=== PATIENT | female | born 1970 | race Caucasian/White ===

== ENCOUNTER 2022-05-05 04:03 | Day surgery (SDC) | payer OTHER ==
[2022-04-30 15:31] VITALS: BMI 36.3
[2022-05-05] MEDS ORDERED: PROPOFOL 20 ML ONE (13:45)
[2022-05-05] MEDS ORDERED: ROCURONIUM BROMIDE 50 MG/5 ML SYRINGE ONE (13:45)
[2022-05-05] MEDS ORDERED: MIDAZOLAM HCL 2 MG/2 ML SINGLE DOSE VIAL ONE (14:02)
[2022-05-05] MEDS ORDERED: ceFAZolin SODIUM 1 GM VIAL IVPB ONE (14:20)
[2022-05-05] MEDS ORDERED: ONDANSETRON 4 MG/2 ML VIAL IVPUSH PRN (14:31)
[2022-05-05] MEDS ORDERED: oxyCODONE HCL 5 MG TABLET PO PRN (14:31)
[2022-05-05] MEDS ORDERED: HEPARIN NA (PORCINE) 5,000 UNITS/ML 1ML VIAL ONE (14:42)
[2022-05-05] MEDS ORDERED: LACTATED RINGERS SOLUTION 1,000 ML IV SCH (14:45)
[2022-05-05] MEDS ORDERED: NEOSTIGMINE METHYLSULFATE 0.5 MG/ML - 10 ML MDV ONE (15:09)
[2022-05-05] MEDS ORDERED: GLYCOPYRROLATE 0.2 MG/1 ML VIAL ONE ×3 (15:09)
[2022-05-05] MEDS ORDERED: KETOROLAC TROMETHAMINE 30 MG/1 ML VIAL ONE (15:10)
[2022-05-05] MEDS ORDERED: DEXAMETHASONE SOD PHOSPHATE 4 MG/1 ML VIAL ONE ×2 (15:10)
[2022-05-05] MEDS ORDERED: PROMETHAZINE HCL 25 MG/1 ML VIAL IVPB ONE (16:30)
[2022-05-05] MEDS ORDERED: PROMETHAZINE HCL 25 MG/1 ML VIAL IVPUSH ONE (16:54)
[2022-05-05 18:29] VITALS: RESP 18
[2022-05-05 19:04] VITALS: BP 122/80; PULSE 80; TEMP 98
== END 2022-05-05 20:00 | disposition home or self-care (01) ==
LOC: JASU-SURG 04:03
PROVIDERS: ATTEND Surgery
PROC: 0WQF4ZZ Repair Abdominal Wall, Percutaneous Endoscopic Approach (ICD-10-PCS; principal; 2022-05-05 12:00)
DX: K43.9 Ventral hernia without obstruction or gangrene (principal); K42.9 Umbilical hernia without obstruction or gangrene
CPT/HCPCS: 81025; 94760; J1644